=== PATIENT | female | born 1980 | race Caucasian/White ===

== ENCOUNTER 2025-05-04 06:30 | Outpatient (REF) | payer OTHER, SELFPAY ==
--- NOTE | ~2025-05-04 | US_ITS ---
EXAMINATION: US THYROID CLINICAL INFORMATION: Nontoxic goiter. COMPARISON: None available. TECHNIQUE: Linear transducer grayscale and color Doppler examination with attention to the region of the thyroid. FINDINGS: SIZE: Measurements of the thyroid lobes and nodules are given in sagittal, anteroposterior and transverse dimensions respectively. Right Thyroid Lobe: 5.6 x 1.8 x 2.1 cm, volume 11.1 mL. Parenchyma: The gland echotexture is normal. Thyroid vascularity is normal. Left Thyroid Lobe: 6.0 x 1.4 x 2.3 cm, volume 10.1 mL. Parenchyma: The gland echotexture is normal. Thyroid vascularity is normal. Isthmus: 0.4 cm in maximum AP dimension. Estimated total number of nodules greater than or equal to 1 cm: 0. Master Control Supervisor nodules are described as follows: 1. Location: Midportion right thyroid lobe.. Size: [0.56 x 0.44 x 0.45 cm, volume 0.06 mL. Nodule characteristics: Composition: Cystic(0). Echogenicity: Anechoic (0). Shape: Not taller than wide (0). Margins: Smooth (0). Echogenic Foci: None (0). ACR TI-RADS total points: 0 ACR TI-RADS category: 1 NODES: There is a 7 mm ovoid shaped hypoechoic lesion with the subtle peripheral flow on color Doppler interrogation centered in the posterior left thyroid lobe. US/US thyroid IMPRESSION: ACR TI-RADS category: 1 7 mm hypoechoic solid lesion posterior to the left thyroid lobe. Recommend dedicated parathyroid scan and or IV contrast enhanced CT soft tissue neck. ACR TI-RADS RECOMMENDATION REFERENCE: Ultrasound-guided fine-needle aspiration, followup ultrasound, no further follow up. * TR1 (0 point) and TR2 (2 points): No FNA or follow up. * TR3 (3 points): FNA if more than or equal to 2.5 cm in maximum dimension, followup ultrasound in 1, 3 and 5 years if 1.5 to 2.4 cm in maximum dimension. * TR4 (4-6 points): FNA if more than or equal to 1.5 cm in maximum dimension, followup ultrasound in 1, 2, 3 and 5 years if 1 to 1.4 cm in maximum dimension. * TR5 (more than or equal to 7 points): FNA if more than or equal to 1 cm in maximum dimension, followup ultrasound every year for 5 years if 0.5 to 0.9 cm in maximum dimension. * TR3, TR4 or TR5 nodules that are below the size threshold for followup receive no follow up. Electronically signed by: Oscar Overton MD 05/04/2025 03:44 PM EDT RP
--- OUTSIDE RECORDS SUMMARY | 2025-05-04 06:34 | XMS_ITS | Encounter Summary ---
Author Organization [facility] Address [address] [facility] [facility] [address] [place] [address] Phone Care Team Providers Care Director Clinical Information Services Name Role Phone Zaira Bean NP Primary Care Provider + [phone] Liberty Salgado MD Primary Care Provider [phone]- [phone] Reason for Referral * MRI/CAT Scan - Closed Specialty Diagnoses / Procedures Referred By Oralia castellanos Referred To Contact Radiology Diagnoses Sensorineural hearing loss, unilateral, right ear, with unrestricted hearing on the contralateral side Tinnitus, right ear Meniere's disease, right ear Procedures MRI Brain CHG MRI BRAIN COMBO CHG MRI BRAIN CHG MRI BRAIN CONTRAST Blas Olguin MD Phone: tel: fax: [email or web address] Referral ID Status Reason Start Date Expiration Date Visits Re quested Visits Authorized [id number] Closed 12/12/2022 01/10/2023 1 1 Encounter Details Date Type Department Care Team (Latest Contact Info) Description 12/12/2022 Transcribe Orders [facility] Department [address] [place] [address] Blas Olguin MD [address] [place] [address] [address] [place] [address] [email or web address] Sensorineural hearing loss, unilateral, right ear, with unrestricted hearing on the contralateral side (Primary Dx); Tinnitus, right ear; Meniere's disease, right ear Social History Tobacco Use Types Packs/Day Years Used Date Smoking Tobacco: Never Assessed Comments Unknown Sex and Gender Information Value Date Recorded Sex Assigned at Female 08/16/2023 12:28 PM EST Legal Sex Female 11:44 AM EST Gender Identity Female 08/16/2023 12:28 PM EST Sexual Orientation Straight 08/16/2023 12 :28 PM EST documented as of this encounter Plan of Treatment Upcoming Encounters Date Type Department Care Team (Late st Contact Info) Description 12/23/2025 10:10 AM EDT Office Visit [facility] Rheumatology [address] [place] [address] [place] [address] Michelle Deng MD, MPH [address] [facility], [address] [place] [address] [email or web address] documented as of this encounter Results * MRI BRAIN (INTERNAL AUDITORY CANAL) WITH AND WITHOUT CONTRAST (01/08/2023 3:23 PM EDT) Anatomical Region Laterality Modality Head Magnetic Resonan ce 01/08/2023 4:43 PM EDT Impressions 01/10/2023 7:45 AM EDT No intracranial cause for the reported symptoms identified. No IAC or CP angle mass. Narrative 01/10/2023 7:45 AM EDT MRI BRAIN (INTERNAL AUDITORY CANAL) WITH AND WITHOUT CONTRAST TECHNIQUE: Multi-sequence, multi-planar MRI of the brain including high resolution images of the temporal bones was performed before and after intravenous contrast. COMPARISON: None FINDINGS: Internal Auditory Canals, Cerebellopontine Angles, and Intracranial 7th and 8th Nerve Complexes: Normal. No cerebellopontine angle or internal auditory canal mass. Inner Ear Structures: Normal. Preserved signal in the labyrinth. No MRI evidence for an inner ear anomaly. Brain Parenchyma: Normal. No evidence of acute infarct, mass lesion, or hemorrhage. Ventricular System and Extra-Axial Spaces: Normal. No evidence of midline shift or hydrocephalus. Miscellaneous: None. Procedure Note Josafat Magana MD - 01/10/2023 MRI BRAIN (INTERNAL AUDITORY CANAL) WITH AND WITHOUT CONTRAST TECHNIQUE: Multi-sequence, multi-planar MRI of the brain including highresolution images of the temporal bones was performed before and afterintravenous contrast. COMPARISON: None FINDINGS: Internal Auditory Canals, Cerebellopontine Angles, and Intracranial 7thand 8th Nerve Complexes: Normal. No cerebellopontine angle or internalauditory canal mass. Inner Ear Structures: Normal. Preserved signal in the labyrinth. No MRIevidence for an inner ear anomaly. Brain Parenchyma: Normal. No evidence of acute infarct, mass lesion, orhemorrhage. Ventricular System and Extra-Axial Spaces: Normal. No evidence of midlineshift or hydrocephalus. Miscellaneous: None. IMPRESSION: No intracranial cause for the reported symptoms identified. No IAC or CPangle mass. Blas Olguin MD IMG MR HEAD/NECK Final Re sult documented in this encounter Visit Diagnoses Diagnosis Sensorineural hearing loss, unilateral, right ear, with unrestricted hearing on the contralateral side- Primary Tinnitus, right ear Meniere's disease, right ear Sensorineural hearing loss, unilateral, right ear, with unrestricted hearing on the contralateral side Tinnitus, right ear Meniere's disease, right ear documented in this encounter Care Teams Director Clinical Information Services Relationship Specialty Start Date End Date Zaira Bean NP PCP - General Family Medicine 08/29/20 05/29/23 Lbierty Salgado MD [address] [place] [id number] [email or web address] PCP - General Family Medicine 05/30/23 documented as of this encounter Additional Source Comments The information contained in this document represents components of the legal health record. It is not the complete legal health record.[facility]
--- OUTSIDE RECORDS SUMMARY | 2025-05-04 06:34 | XMS_ITS | Encounter Summary ---
Author Organization [facility] Address [address] [address] Phone Care Team Providers Care Software Computer Specialist Name Role Phone Zaira Bean NP Primary Care Provider Liberty Salgado MD Primary Care Provider Encounter Details Date Type Department Care Team (Late st Contact Info) Description 12/12/2022 Procedure Pass [address] [address] Social History Tobacco Use Types Packs/Day Years [...] Description 12/23/2025 10:10 AM EDT Office Visit [facility] Rheumatology [address] [place] [address] Michelle Deng MD, MPH [address] [facility] [address] [place] [address] [email or web address] documented as of this encounter Visit Diagnoses Not on filedocumented in this encounter Care Teams Software Computer Specialist Relationship Specialty Start Date End Date Zaira Bean, M[employer]ED [employer]ICE [employer]ER PCP - General Family Medicine 08/29/20 05/29/23 Liberty Salgado MD [address] [place] [id number] [email or web address] PCP - General Family Medicine 05/30/23 documented as of this encounter Additional Source Comments The information contained in this document represents components of the legal health record. It is not the complete legal health record.[facility]
--- OUTSIDE RECORDS SUMMARY | 2025-05-04 06:34 | XMS_ITS | Clinical Summary ---
Author Organization [facility] Address [address] [address] Phone Care Team Providers Care Hollow Handle Bench Worker Name Role Phone Liberty Salgado MD Primary Care Provider Allergies Active Allergy Reactions Criticality Noted Date Comments Carbamazepine Hives 08/20/2023 Yellow Jacket Venom Anaphylaxis,Hives High 4 None since age 16 Medications ibuprofen (ADVIL,MOTRIN) 200 MG tablet Take 200 mg by mouth every 6 (six) hours as needed for pain (specific location in comments). Active EPINEPHrine 0.3 mg/0.3 mL auto-injector Inject 0.3 mg into the muscle once as needed. 4 Active BLISOVI FE 09/21, , 1 mg-20 mcg (21)/75 mg (7) per tablet Take 1 tablet by mouth daily. 4 Active azelaic acid (AZELAIC-METRON IDAZOLE-IVERMEC TIN) 15%-1%-1% topical cream Apply 1 Application topically. Active Active Problems No known active problems Social History Tobacco Use Types Packs/Day Years Used Date Smoking Tobacco: Never Smokeless Tobacco: Never Tobacco Cessation:Counseling Given: Not Answered Alcohol Use Standard Drinks/Week Comments Yes 8 (1 standard drink = 0.6 oz pur e alcohol) 8/week Education Answer Date Recorded Are you interested in more education? Not on martín e 12/28/2022 Are you concerned about learning? Not on file 12/28/2022 No 12/28/2022 No 12/28/2022 Digital Access Answer Date Recorded No 01/29/2023 No 01/29/2023 Reliable internet access at home? Not on file 01/29/2023 Device with a working camera? Not on file Intimate Partner Violence Answer Date R ecorded Are you denied basic needs s uch as food, clothing, or medical care? No 08/19/2024 In the past 12 months have y ou been in a relationship with a person who hurts, threatens, or tries to control you? No 08/19/2024 Are you denied basic needs s uch as food, clothing, or medical care? No 08/19/2024 In the past 12 months have y ou been in a relationship with a person who hurts, threatens, or tries to control you? No 08/19/2024 Comments Unknown Sex and Gender Information Value Date Recorded Sex Assigned at Female 08/16/2023 12:28 PM EST Legal Sex Female 11:44 AM EST Gender Identity Female 08/16/2023 12:28 PM EST Sexual Orientation Straight 08/16/2023 12 :28 PM EST Last Filed Vital Signs Vital Sign Reading Time Taken Comments Blood Pressure 106/72 08/31/2024 9:39 AM EST Pulse 64 08/31/2024 9:39 AM EST Temperature 36.6 C (97.9 F) 08/31/2024 9:39 AM EST Respiratory Rate 18 08/31/2024 9:39 AM EST Oxygen Saturation 97% 08/31/2024 9:39 AM EST Inhaled Oxygen Concentration - - Weight 88.5 kg (195 lb) 08/19/2024 2:59 PM EST Height 160 cm (5' 3 ) 08/19/2024 2:59 PM EST Body Mass Index 34.54 08/19/2024 2:59 PM EST Plan of Treatment Upcoming Encounters Date Type Department Care Team (Late st Contact Info) Description 12/23/2025 10:10 AM EDT Office Visit [facility] Rheumatology [address] [place] [address] Michelle Deng MD, MPH [address] [facility], [address] [place] [address] Health Maintenance Due Date Last Done Comments LIPID PANEL 1978 DEPRESSION SCREENING 1990 HEPATITIS C SCREENING 1996 SCREENING FOR DIABETES 2013 MAMMOGRAM 2018 PAP SMEAR 08/17/2019 08/17/2016 COLOGUARD 2023 FIT TEST 2023 FOBT 2023 SIGMOIDOSCOPY 2023 VIRTUAL COLONOSCOPY 2023 COVID-19 VACCINE (1 - 2023-2 5 season) 2024 Adult Td,Tdap Booster 07/22/2029 07/22/2019 , 06/29/2010 COLONOSCOPY 08/31/2034 08/31/2024 COLORECTAL CANCER SCREENING 08/31/2034 HIV ONE-TIME SCREENING (18-6 5 YEARS) Completed 08/20/2023 SMOKING STATUS SCREENING (On ce After 26 Yrs) Completed 08/31/2024 HEPATITIS A VACCINES Aged Out No long er eligible based on patient's age to complete this topic HIB VACCINES Aged Out No longer eligi ble based on patient's age to complete this topic MENINGOCOCCAL VACCINES (ACWY) Aged Out No longer eligible based on patient's age to complete this topic MENINGOCOCCAL VACCINES (B) Aged Out N o longer eligible based on patient's age to complete this topic PNEUMOCOCCAL VACCINES (0-49 years) Aged Out No longer eligible b ased on patient's age to complete this topic Medical Devices Not on file Procedures Procedure Name Priority Date/Time Associated Diagnosis Comments ENDOSCOPY, COLON 08/31/2024 9:08 AM EST from Last 3 Months or Most Recently Relevant to Health Maintenance Results * ENDOSCOPY, COLON (08/31/2024 9:08 AM EST) Narrative Transcriptions Paco Crouch MD - 08/31/2024 9:08 AM EST [facility] Patient Name: Mary Bose Attending MD:: PACO CROUCH MD, , Procedure Date: 08/31/2024 9:08 AM Date of : 1980 Age: 43 Admit Type: Outpatient Gender: Female Room: [place] [address] Referring MD: Liberty Jesus Exam Type: Colonoscopy Indications: Screening for colorectal malignant neoplasm Medications: Monitored Anesthesia Care Procedure: Informed consent was obtained from the patientafter discussion of the indications, limitations, alternatives, benefits, and risks of the procedure. Risks specifically discussed include but are not limited to medication reactions, missed lesions, bleeding, perforation, or the need for emergent surgery. Throughout the procedure, the patient's blood pressure, pulse, end-tidal CO2, and oxygensaturations were monitored continuously. The Olympus adult variable colonoscope [id number] #7 was introduced through the anus and advanced to the cecum, identified by appendiceal orifice andileocecal valve. The colonoscopy was performed without difficulty. The patient tolerated the procedurewell. The quality of the bowel preparation was excellent. The quality of the bowel preparation was evaluated using the BBPS ([place] Bowel Preparation Scale)with scores of: Right Colon = 3, Transverse Colon = 3and Left Colon = 3 (entire mucosa seen well with no residual staining, small fragments of stool oropaque liquid). The total BBPS score equals 9. Anatomical landmarks were photographed. Complications: No immediate complications. Estimated blood loss: Minimal. Findings: The perianal and digital rectal examinations were normal. Two sessile polyps were found in the ascendingcolon. The polyps were 3 to 5 mm in size. These polypswere removed with a cold snare. Resection and retrieval were complete. A 4 mm polyp was found in the sigmoid colon. Thepolyp was sessile. The polyp was removed with a coldsnare. Resection and retrieval were complete. Internal hemorrhoids were found duringretroflexion. The hemorrhoids were mild. The exam was otherwise normal throughout theexamined colon. Impression: - Two 3 to 5 mm polyps in the ascending colon,removed with a cold snare. Resected and retrieved. - One 4 mm polyp in the sigmoid colon, removed witha cold snare. Resected and retrieved. - Internal hemorrhoids. Recommendation: - Discharge patient to home. - Await pathology results. PACO CROUCH MD, 08/31/2024 9:32:46 AM This report has been signed electronically. Number of Addenda: 0 Note Initiated On: 08/31/2024 9:08 AM Procedure Code(s): --- Professional --- 03619, Colonoscopy, flexible; with removal of tumor(s), polyp(s), or other lesion(s) by snare technique --- Technical --- 71669, Colonoscopy, flexible; with removal of tumor(s), polyp(s), or other lesion(s) by snare technique Diagnosis Code(s): --- Professional --- Z12.11, Encounter for screening for malignantneoplasm of colon D12.2, Benign neoplasm of ascending colon D12.5, Benign neoplasm of sigmoid colon K64.8, Other hemorrhoids --- Technical --- Z12.11, Encounter for screening for malignantneoplasm of colon D12.2, Benign neoplasm of ascending colon D12.5, Benign neoplasm of sigmoid colon K64.8, Other hemorrhoids CPT copyright 2021 [employer]. All rights reserved. The codes documented in this report are preliminary and upon range operator reviewmay be revised to meet current compliance requirements. Procedure Date: 08/31/2024 9:08:[address] [place] [address] Liberty Salgado MD GI PROCEDURE ORDERABLES Fin al Result from Last 3 Months or Most Recently Relevant to Health Maintenance Insurance [employer] PLUS PPO App[employer] GIC PLUS PPO App[employer] GIC PLUS PPO WELL[employer] GIC PLUS PPO [employer] GIC PLUS PPO [employer] PLUS PPO [employer] PLUS PPO [employer] GIC PLUS PPO Volve[employer] PLUS PPO Care Teams Hollow Handle Bench Worker Relationship Specialty Start Date End Date Liberty Salgado MD [address] [place] [address] [email or web address] PCP - General Family Medicine 05/30/23 Additional Source Comments The information contained in this document represents components of the legal health record. It is not the complete legal health record.[facility]
--- OUTSIDE RECORDS SUMMARY | 2025-05-04 06:34 | XMS_ITS | Encounter Summary ---
Author Organization [facility] Address [address] [facility] [address] [place] [address] Phone Care Team Providers Care Duplicator Punch Set Up Operator Name Role Phone Liberty Salgado MD Primary Care Provider [phone] Encounter Details Date Type Department Care Team (Late st Contact Info) Description 08/31/2024 Procedure Pass [facility] Endoscopy Admitting Dept Virtual Department [address] [place] [address] Social History Tobacco Use Types Packs/Day Years Used Date Smoking Tobacco: Never Smokeless Tobacco: Never Alcohol Use Standard Drinks/Week Comments Yes 8 [...] Description 12/23/2025 10:10 AM EDT Office Visit [facility] Rheumatology [address] [place] [address] Michelle Deng MD, MPH [address] [facility], [address] [place] [address] [email or web address] documented as of this encounter Visit Diagnoses Not on filedocumented in this encounter Care Teams Duplicator Punch Set Up Operator Relationship Specialty Start Date End Date Liberty Salgado MD [facility] [place] [address] [email or web address] PCP - General Family Medicine 05/30/23 documented as of this encounter Additional Source Comments The information contained in this document represents components of the legal health record. It is not the complete legal health record.[facility]
== END 2025-05-04 06:31 | disposition home or self-care (01) ==
LOC: HO.UMASIMG 06:30
PROVIDERS: Visit Provider Family Medicine
DX: E04.9 Nontoxic goiter, unspecified (principal)
CPT/HCPCS: 76536

== ENCOUNTER → 2025-05-04 14:30 | Outpatient (BNV) | payer OTHER, SELFPAY | PROVIDERS: Visit Provider Radiology Diagnostic Radiology | DX: E04.1 Nontoxic single thyroid nodule (principal) | CPT/HCPCS: 76536 ==